=== PATIENT | female | born 1960 | race African-American/Black ===

== ENCOUNTER 2018-03-08 13:47 | Inpatient (IN) | payer OTHER ==
[~2018-03-08] VITALS: Ht 157.5 cm; Wt 66.2 kg
--- NOTE | ~2018-03-08 | EKG ---
[address] [address] ELECTROCARDIOGRAM REPORT Name: BELEM LEMUS Robert Room #: 201-P ADM IN M.R.#: [id number] Admission: 03/08/18 Attend Phys: Pato Millan MD Discharge: Date of : 56 Report #: [id number] THIS REPORT FOR: //name// [facility] ED Test Date: 2018-03-08 Test Time: 14:09:23 Pat Name: BELEM LEMUS Department: Room: [facility] Gender: F Pharmacy Resource Tech: TAMARA : 1960 Requested By: Alessio Sanchez Order Number: [id number] MD: Dameon Carlson Measurements Intervals [place] Rate: 204 P: 0 GA: 98 QRS: 48 QRSD: 83 T: 105 QT: 206 QTc: 380 Interpretive Statements Supraventricular tachycardia Repolarization abnormality, prob rate related Compared to ECG 01/26/2010 10:41:37 SVT is now present Electronically Signed On 03-09-2018 8:48:12 LAND COMMISSIONER by Dameon Carlson [email or web address] <ELECTRONICALLY SIGNED> By: Dameon Carlson MD, [facility] 03/09/18 0848 1409 140 Dameon Carlson MD, [facility] /EPI
--- NOTE | ~2018-03-08 | HC ---
[facility] [place] [address] CONSULTATION Name: BELEM LEMUS Room #: 201-P [facility] IN ..#: [id number] Admission: 03/08/18 Attend Phys: Pato Millan MD Discharge: Date of : 56 Report #: [id number] THIS REPORT FOR: //name// CC: FAM unknown Pato Millan REASON FOR CONSULTATION: Palpitations. HISTORY OF PRESENT ILLNESS: The patient is a 57-year-old woman with chronic pain syndrome and sympathetic dystrophy. Over the past 2 weeks, she has noticed a rapid and racing heartbeat. This has been off and on, almost continuously for the past 2 weeks. Today's episode was more prolonged and she presented to the Emergency Department, where she was found to be in a supraventricular short RP tachycardia. She was given Cardizem and converted to sinus tachycardia with atrial premature complexes. She has had brief runs of SVT on intravenous Cardizem, although feels significantly better. She denies chest pain, pressure or ischemic-type symptoms. She denies heart failure symptoms including orthopnea, paroxysmal nocturnal dyspnea or lower extremity edema. Occasional lightheaded spells, no syncope. MEDICATIONS: Include olmesartan 20 mg daily and alprazolam 0.5 mg as needed. ALLERGIES: SHE IS ALLERGIC TO IODINE AND SHELLFISH. PAST MEDICAL HISTORY: Her past history and medical records have been reviewed and include a history of chronic back pain, hypertension, anxiety disorder and deaf with cochlear implant. SOCIAL HISTORY: She is nonsmoker, nondrinker. She drinks 6-8 cans of caffeinated soda a day, 1-2 cups of coffee a day. FAMILY HISTORY: Notable for mother who had a bovine aortic valve replacement. REVIEW OF SYSTEMS: All systems negative, except as that noted above. PHYSICAL EXAMINATION: GENERAL: Exam reveals a pleasant woman, in no distress. VITAL SIGNS: Blood pressure is 126/71, heart rate of 90 and regular. She is afebrile. HEENT: There are neither xanthelasma, subcutaneous xanthomata, oral mucosal or digital cyanosis or kyphoscoliosis present. CHEST: Clear to auscultation and percussion. CARDIAC EXAMINATION: Regular rate and rhythm, with normal S1, S2. No murmurs, or rubs. ABDOMEN: Soft and nontender. EXTREMITIES: Without cyanosis, clubbing or edema. Radial pulses are 2+. NEUROLOGIC: She is alert, with a nonfocal exam. [facility] [address] [place] [address] CONSULTATION Name: BELEM LEMUS Room #: 201-P [facility] IN [facility]#: [id number] Admission: 03/08/18 Attend Phys: Pato Millan MD Discharge: Date of : 56 Report #: [id number] LABORATORY DATA: EKG from 01/2010 is normal. No pre-excitation. Followup EKG today at 14:33 is normal. Sodium 145, potassium 3.6 and creatinine 1.0. Troponin 0. White count 8.4, hemoglobin 14, hematocrit 42 and platelet count 192,000. TSH 1.25. Chest x-ray is normal. IMPRESSION: 1. 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 2. Hypertension. 3. Sympathetic dystrophy. 4. Chronic pain syndrome. 5. Deaf with cochlear implant. RECOMMENDATIONS: 1. Change from intravenous to oral Cardizem. Add a type 1C antiarrhythmic agent such as flecainide. 2. Echocardiogram with Doppler. 3. Moderation in caffeine intake strongly encouraged. 4. Consider outpatient evaluation for ablation. These issues were discussed with the patient and her family. Thank you for asking me to participate in her care. <ELECTRONICALLY SIGNED> By: Dameon Carlson MD, FACC 03/09/18 1239 1929 2339 Dameon Carlson MD, FACC /nt
--- NOTE | ~2018-03-08 | EKG ---
[address] [address] ELECTROCARDIOGRAM REPORT Name: BELEM LEMUS Room #: 201-P ADM IN M.R.#: [id number] Admission: 03/08/18 Attend Phys: Pato Millan MD Discharge: Date of : 56 Report #: [id number] THIS REPORT FOR: //name// [facility] ED Test Date: 2018-03-08 Test Time: 14:01:28 Pat Name: BELEM LEMUS Department: Room: [facility] Gender: F Swimming Coach Or Instructor: TAMARA : 1960 Requested By: Alessio Sanchez Order Number: [id number] MD: Dameon Carlson Measurements Intervals [place] Rate: 112 P: 65 VT: 138 QRS: 28 QRSD: 83 T: 40 QT: 315 QTc: 430 Interpretive Statements Sinus tachycardia Multiple premature complexes, supraven Nonspecific ST segment abnormality Compared to ECG 01/26/2010 10:41:37 Atrial premature complexes are now present Electronically Signed On 03-09-2018 8:47:57 GAS PUMP ATTENDANT by Dameon Carlson [email or web address] <ELECTRONICALLY SIGNED> By: Dameon Carlson MD, [facility] 03/09/18 0847 1401 1401 Dameon Carlson MD, [facility] /EPI
--- NOTE | ~2018-03-08 | EKG ---
[address] [address] ELECTROCARDIOGRAM REPORT Name: ALLANBELEM Robert Room #: 201- ADM IN M.R.#: [id number] Admission: 03/08/18 Attend Phys: Pato Millan MD Discharge: Date of : 56 Report #: [id number] THIS REPORT FOR: //name// [facility] Test Date: 2018-03-09 Test Time: 06:44:26 Pat Name: BELEM LEMUS Department: Room: 201 Gender: F Digester Cook: ALEXA : 1960 Requested By: Dameon Carlson Order Number: [id number] MD: Dameon Carlson Measurements Intervals [place] Rate: 64 P: 64 [place]: 178 QRS: 54 QRSD: 93 T: 59 QT: 431 QTc: 445 Interpretive Statements Sinus rhythm Normal tracing Compared to ECG 01/26/2010 10:41:37 No significant changes Electronically Signed On 03-09-2018 8:58:12 DIAMOND SORTER by Dameon Carlson [email or web address] <ELECTRONICALLY SIGNED> By: Dameon Carlson MD, [facility] 03/09/18 0858 0644 0644 Dameon Carlson MD, FACC /EPI
--- NOTE | ~2018-03-08 | EKG ---
[address] [address] ELECTROCARDIOGRAM REPORT Name: BELEM LEMUS Room #: 201-P ADM IN M.R.#: [id number] Admission: 03/08/18 Attend Phys: Pato Millan MD Discharge: Date of : 56 Report #: [id number] THIS REPORT FOR: //name// [facility] ED Test Date: 2018-03-08 Test Time: 14:33:29 Pat Name: BELEM LEMUS Department: Room: [facility] Gender: F Movie Stunt Performer: TAMARA : 1960 Requested By: Alessio Sanchez Order Number: [id number] MD: Dameon Carlson Measurements Intervals [place] Rate: 55 P: 66 SC: 145 QRS: 36 QRSD: 88 T: 51 QT: 406 QTc: 389 Interpretive Statements Sinus bradycardia Otherwise normal tracing Compared to ECG 01/26/2010 10:41:37 Sinus rhythm is replaced SVT Electronically Signed On 03-09-2018 8:48:48 SHIFT COMMANDER by Dameon Carlson [email or web address] <ELECTRONICALLY SIGNED> By: Dameon Carlson MD, [facility] 03/09/18 0848 1433 1433 Dameon Carlson MD, [facility] /EPI
--- NOTE | ~2018-03-08 | 2DMMODE ---
[facility] [address] [place] [address] 2 D/M-MODE ECHOCARDIOGRAM Name: BELEM LEMUS Room #: 201-P [facility]#: [id number] Admission: 03/08/18 Attend Phys: Pato Millan, Discharge: Date of : 56 Date of Service: 03/09/18 1014 Report #: [id number] THIS REPORT FOR: //name// APPROVED REPORT Study performed: 03/09/2018 09:31:05 EXAM: Comprehensive 2D, Doppler, and color-flow Echocardiogram Patient Location: Bedside Room #: 201 Status: routine BSA: 1.67 HR: 76 bpm BP: 108/54 mmHg Rhythm: NSR Other Information Study Quality: Adequate Indications Tachycardia Hypertension/HDD 2D Dimensions RVDd: 34.04 mm IVSd: 9.09 (7-11mm) LVOT Diam: 18.49 (18-24mm) LVDd: 37.31 mm PWd: 9.38 (7-11mm) Ascending Ao: 23.24 (22-36mm) LVDs: 24.63 (25-40mm) Aortic Root: 24.99 mm IVC: 10.00 mm Volumes Left Atrial Volume (Systole) Single Plane 4CH: 29.10 mL Single Plane 2CH: 46.84 mL LA ESV Index: 25.00 mL/m2 Aortic Valve AoV Peak Faheem.: 1.59 m/s AO Peak Gr.: 10.14 mmHg LVOT Max P.09 mmHg LVOT Max V: 1.33 m/s MONCHO Vmax: 2.24 cm2 Mitral Valve E/A Ratio: 1.1 MV Decel. Time: 211.09 ms [facility] [place] [address] 2 D/M-MODE ECHOCARDIOGRAM Name: ALLANBELEM Robert Room #: 201-P [facility] IN ..#: [id number] Admission: 03/08/18 Attend Phys: Pato Millan, Discharge: Date of : 56 Date of Service: 03/09/18 1014 Report #: [id number] MV E Max Faheem.: 0.81 m/s MV A Faheem.: 0.76 m/s MV PHT: 61.22 ms IVRT: 64.59 ms Pulmonary Valve PV Peak Faheem.: 0.98 m/s PV Peak Gr.: 3.86 mmHg Pulmonary Vein P Vein S: 0.76 m/s P Vein A: 0.26 m/s P Vein D: 0.37 m/s P Vein A Dur.: 96.9 msec P Vein S/D Ratio: 2.05 Tricuspid Valve TR Peak Faheem.: 2.23 m/s TR Peak Gr.: 19.97 mmHg PA Pressure: 25.00 mmHg Left Ventricle The left ventricle is normal size. There is normal LV segmental wall motion. There is normal left ventricular wall thickness. Left ventricular systolic function is normal. The left ventricular ejection fraction is within the normal range. LVEF is 55-60%. The left ventricular diastolic function is normal. Right Ventricle The right ventricle is normal size. The right ventricular systolic function is normal. Atria The left atrium size is normal. The right atrium size is normal. Aortic Valve The aortic valve is mildly sclerotic No aortic regurgitation is present. There is no aortic valvular stenosis. Mitral Valve The mitral valve is normal in structure. There is no mitral valve regurgitation noted. No evidence of mitral valve stenosis. Tricuspid Valve The tricuspid valve is normal in structure. There is trace tricuspid regurgitation. Estimated PAP 25 mmHg. There is no pulmonary hypertension. [address] [address] 2 D/M-MODE ECHOCARDIOGRAM Name: BELEM LEMUS Robert Room #: 201-P [facility]#: [id number] Admission: 03/08/18 Attend Phys: Pato Millan, Discharge: Date of : 56 Date of Service: 03/09/18 1014 Report #: [id number] Pulmonic Valve The pulmonary valve is normal in structure. There is no pulmonic valvular regurgitation. Great Vessels The aortic root is normal in size. IVC is normal in size and collapses >50% with inspiration. Pericardium There is no pericardial effusion. <Conclusion> Left ventricular systolic function is normal. There is normal LV segmental wall motion. LVEF is 55-60%. Normal diastolic function The aortic valve is mildly sclerotic. No aortic regurgitation or stenosis. The mitral valve is normal in structure. No mitral valve regurgitation. There is trace tricuspid regurgitation. Estimated pulmonary artery pressure of 25 mmHg. There is no pericardial effusion. <ELECTRONICALLY SIGNED> By: Dameon Carlson MD, FACC 03/09/18 1014 1014 1014 Dameon Carlson MD, FACC /INF
[~2018-03-08 13:47] MED LIST: CARISOPRODOL 3350 MG; CATAPRES-TTS 10.1 M1; EXFORGE; NEURONTIN 300M300 M2; OXYCODONE-APAP1 EAC5; TRAMADOL 50 MG50 MG; XANAX 0.25 MG0.25 MG
[2018-03-08 13:48] VITALS: BP 109/47
[2018-03-08 15:03] LABS: ABSOLUTE NEUTROPHILS 5.7 thou/uL (1.4-8.2); BASOPHILS 0.4 % (0.0-2.0); EOSINOPHILS 0.4 % (0.0-3.0); HEMATOCRIT 42.9 % (37.0-47.0); HEMOGLOBIN 14.5 gm/dL (12.0-15.0); MCH 31.6 pg (26.0-34.0); MCHC 33.7 g/dL (28.0-37.0); MCV 93.8 fL (80.0-100.0); MONOCYTES 7.1 % (1.0-8.0); PLATELET COUNT 192 thou/uL (150-400); POLYS 68.1 % (36.0-66.0); RBC 4.58 mil/uL (4.20-5.00); RDW 13.7 % (10.5-14.5); WBC 8.4 thou/uL (4.0-11.0)
[2018-03-08] MEDS ORDERED: BENICAR20 MG PO (15:04)
[2018-03-08] MEDS ORDERED: XANAX 0.5 MG0.5 MG PO (15:05)
[2018-03-08 15:08] LABS: ANION GAP 12 mmol/L (7-16); BUN 18 mg/dL (7-18); CALCIUM 9.5 mg/dL (8.5-10.1); CHLORIDE 107 mmol/L (98-107); CO2 26 mmol/L (21-32); GLUCOSE 109 mg/dL (74-106); POTASSIUM 3.8 mmol/L (3.5-5.1); SODIUM 145 mmol/L (136-145)
[2018-03-08 15:16] LABS: TROPONIN-I <0.06 ng/mL (<0.06)
[2018-03-08 17:00] VITALS: BP 136/86
[2018-03-08 17:29] LABS: TOTAL PROTEIN 7.9 g/dL (6.4-8.2)
[2018-03-08 17:54] LABS: TSH 1.259 uIU/mL (0.358-3.740)
[2018-03-08 18:07] VITALS: BP 126/71
[2018-03-09] VITALS (8 sets, daily range): BP systolic 94–130; BP diastolic 48–63
[2018-03-09 03:51] LABS: CALCIUM 8.8 mg/dL (8.5-10.1); CREATININE 0.8 mg/dL (0.6-1.0); POTASSIUM 3.9 mmol/L (3.5-5.1)
[2018-03-09 04:46] LABS: HEMATOCRIT 41.1 % (37.0-47.0); HEMOGLOBIN 13.7 gm/dL (12.0-15.0); MCH 31.6 pg (26.0-34.0); MCHC 33.3 g/dL (28.0-37.0); MCV 94.9 fL (80.0-100.0); RBC 4.33 mil/uL (4.20-5.00); RDW 13.8 % (10.5-14.5); WBC 7.5 thou/uL (4.0-11.0)
[2018-03-09] MEDS ORDERED: FLECAINIDE ACET50 M1 PO (09:49)
[2018-03-09] MEDS ORDERED: CARDIZEM CD240 MG PO (09:49)
== END 2018-03-09 18:57 | disposition home or self-care (01) | DRG 309 ==
LOC: ER 13:47 → 2N 16:31 → EROBS 16:31 → 2N 18:24
PROVIDERS: Emergency Medicine; Internal Medicine
DX: I47.1 Supraventricular tachycardia (principal); L10.4 Pemphigus erythematosus; G90.50 Complex regional pain syndrome I, unspecified; H91.90 Unspecified hearing loss, unspecified ear; I48.92 Unspecified atrial flutter; I10 Essential (primary) hypertension; G89.4 Chronic pain syndrome; F41.1 Generalized anxiety disorder; Z79.899 Other long term (current) drug therapy; Z91.041 Radiographic dye allergy status; Z91.013 Allergy to seafood; Z82.49 Family history of ischemic heart disease and other diseases of the circulatory system
CPT/HCPCS: 10081

== ENCOUNTER 2018-03-12 18:06 | Inpatient (IN) | payer OTHER ==
[~2018-03-12] VITALS: Ht 160 cm; Wt 59.4 kg
--- NOTE | ~2018-03-12 | HC ---
[facility] [place] [address] CONSULTATION Name: BELEM LEMUS Room #: 215-P [facility] IN ..#: [id number] Admission: 03/12/18 Attend Phys: Braxton Tubbs MD Discharge: Date of : 56 Report #: [id number] THIS REPORT FOR: //name// CC: Braxton Morales REASON FOR CONSULTATION: Palpitations. HISTORY OF PRESENT ILLNESS: The patient is a 57-year-old woman who was recently admitted on 03/08 with paroxysmal supraventricular tachycardia. This was responsive to diltiazem and flecainide. She was discharged to home, although re-presented to the Emergency Department with the same tachycardia. This was at a rate of 165 beats per minute. 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 She had not taken her evening flecainide dose as she was at a [employer] [place] republican. She denies chest pain, pressure or ischemic type symptoms. She has occasional lightheadedness, no syncope, no heart failure symptoms including orthopnea, paroxysmal nocturnal dyspnea or lower extremity edema. ALLERGIES: SHE IS ALLERGIC TO IODINE AND SHELLFISH. MEDICATIONS: Include flecainide 50 mg twice daily, diltiazem CD 240 mg daily. PAST MEDICAL HISTORY: Medical records have been reviewed and include a history of chronic complex regional pain syndrome, deafness with cochlear implant, PSVT, anxiety disorder, hypertension. SOCIAL HISTORY: She is nonsmoker, nondrinker. She had been a heavy caffeine drinker up until recently. FAMILY HISTORY: Notable for mother who had a bovine aortic valve replacement. REVIEW OF SYSTEMS: All systems negative except as that noted above. PHYSICAL EXAMINATION: GENERAL: Reveals a pleasant woman in no distress. VITAL SIGNS: Blood pressure is 108/68, heart rate of 65 and regular. She is afebrile. HEENT: There are neither xanthelasma, subcutaneous xanthomata, oral mucosal or digital cyanosis or kyphoscoliosis present. CHEST: Clear to auscultation and percussion. CARDIOVASCULAR: Regular rate and rhythm with normal S1, S2. No murmurs or rubs. ABDOMEN: Soft and nontender. EXTREMITIES: Without cyanosis, clubbing or edema. Radial pulses are 2+. NEUROLOGIC: She is alert with a nonfocal exam. [facility] [address] [place] [address] CONSULTATION Name: BELEM LEMUS [facility] ..#: [id number] Admission: 03/12/18 Attend Phys: Braxton Tubbs MD Discharge: Date of : 56 Report #: [id number] Recent echocardiogram was normal. EKG, supraventricular tachycardia with short RP tachycardia with nonspecific ST segment abnormality. Resting EKG in the absence of this tachycardia is normal. LABORATORY DATA: Sodium 144, potassium 3.8, creatinine 0.9. Troponin 0. White count 11.1, hemoglobin 15, hematocrit 45, platelet count 211. IMPRESSION: 1. Paroxysmal supraventricular tachycardia. 2. Hypertension. 3. Chronic regional pain syndrome. 4. Deaf with cochlear implant. RECOMMENDATIONS: 1. Continue Cardizem and flecainide. 2. Formal electrophysiologic consultation. <ELECTRONICALLY SIGNED> By: Dameon Carlson MD, FACC 03/13/18 0834 0730 0747 Dameon Carlson MD, FAC /nt
--- NOTE | ~2018-03-12 | EKG ---
[address] [place] [address] ELECTROCARDIOGRAM REPORT Name: BELEM LEMUS Room #: 215-P ADM IN M.R.#: [id number] Admission: 03/12/18 Attend Phys: Braxton Tubbs MD Discharge: Date of : 56 Report #: [id number] THIS REPORT FOR: //name// [facility] ED Test Date: 2018-03-12 Test Time: 18:09:39 Pat Name: BELEM LEMUS Department: Room: [facility] Gender: F Wiring Mechanic: DOMO : 1960 Requested By: Elise Jaramillo Order Number: [id number] MD: Dameon Carlson Measurements Intervals [place] Rate: 165 P: 0 [place]: QRS: 34 QRSD: 91 T: 185 QT: 277 QTc: 459 Interpretive Statements Supraventricular tachycardia Repolarization abnormality, prob rate related Compared to ECG 03/09/2018 06:44:26 SVT is now present Electronically Signed On 03-13-2018 8:41:44 VASCULAR TECHNICIAN by Dameon Carlson [email or web address] <ELECTRONICALLY SIGNED> By: Dameon Carlson MD, [facility] 03/13/18 0841 08 08 Dameon Carlson MD, [facility] /EPI
[2018-03-12 11:30] VITALS: BP 104/46
[~2018-03-12 18:06] MED LIST changes: +BENICAR20 MG PO; +CARDIZEM CD240 MG PO; +FLECAINIDE ACET50 M1 PO; +XANAX 0.5 MG0.5 MG PO
[2018-03-12 18:10] VITALS: BP 102/96
[2018-03-12 18:22] LABS: ABSOLUTE NEUTROPHILS 6.7 thou/uL (1.4-8.2); BASOPHILS 0.3 % (0.0-2.0); EOSINOPHILS 0.6 % (0.0-3.0); HEMATOCRIT 45.1 % (37.0-47.0); HEMOGLOBIN 15.1 gm/dL (12.0-15.0); LYMPHOCYTES 31.6 % (24.0-44.0); MCH 31.5 pg (26.0-34.0); MCHC 33.4 g/dL (28.0-37.0); MCV 94.2 fL (80.0-100.0); MONOCYTES 6.5 % (1.0-8.0); PLATELET COUNT 211 thou/uL (150-400); RBC 4.78 mil/uL (4.20-5.00); RDW 13.6 % (10.5-14.5)
[2018-03-12 18:27] LABS: ANION GAP 14 mmol/L (7-16); BUN 23 mg/dL (7-18); CALCIUM 10.1 mg/dL (8.5-10.1); CHLORIDE 103 mmol/L (98-107); CO2 26 mmol/L (21-32); GLUCOSE 112 mg/dL (74-106); POTASSIUM 3.7 mmol/L (3.5-5.1); SODIUM 143 mmol/L (136-145)
[2018-03-12 18:36] LABS: MAGNESIUM 2.3 mg/dL (1.8-2.4); TROPONIN-I <0.06 ng/mL (<0.06)
[2018-03-12 20:01] VITALS: BP 130/61
[2018-03-12 20:32] VITALS: BP 161/67
[2018-03-12] MEDS ORDERED: BENICAR20 MG PO (21:08)
[2018-03-13] VITALS (7 sets, daily range): BP systolic 94–140; BP diastolic 42–72
[2018-03-13 04:43] LABS: CREATININE 0.9 mg/dL (0.6-1.0); POTASSIUM 3.8 mmol/L (3.5-5.1)
[2018-03-13] MEDS ORDERED: TAMBOCOR 100 M100 M1 PO (09:51)
[2018-03-14 04:00] VITALS: BP 102/55
[2018-03-14] MEDS ORDERED: CARDIZEM CD120 MG PO (11:37)
[2018-03-14] MEDS ORDERED: TRIMETHOPRIM /P10 M1 OPHTHALMIC (13:02)
[2018-03-14 13:19] VITALS: BP 102/55
[2018-03-14 14:21] VITALS: BP 102/55
== END 2018-03-14 14:25 | disposition home or self-care (01) | DRG 309 ==
LOC: ER 18:06 → 2N 18:57 → EROBS 18:57 → 2N 20:04
PROVIDERS: Emergency Medicine; Nurse Practitioner Family
DX: I47.1 Supraventricular tachycardia (principal); G90.50 Complex regional pain syndrome I, unspecified; I10 Essential (primary) hypertension; M54.9 Dorsalgia, unspecified; Z96.21 Cochlear implant status; G89.4 Chronic pain syndrome; F41.1 Generalized anxiety disorder; Z60.2 Problems related to living alone; Z91.041 Radiographic dye allergy status; Z91.013 Allergy to seafood; Z82.49 Family history of ischemic heart disease and other diseases of the circulatory system; Z79.899 Other long term (current) drug therapy
CPT/HCPCS: 10081

== ENCOUNTER → 2018-03-25 | Outpatient (CLI) | payer OTHER ==
[~2018-03-25] VITALS: Ht 160 cm; Wt 54.4 kg
[~2018-03-25] MED LIST changes: +CARDIZEM CD120 MG PO; +TAMBOCOR 100 M100 M1 PO; +TRIMETHOPRIM /P10 M1 OPHTHALMIC
[2018-03-25 07:19] VITALS: BP 156/67
[2018-03-25 07:24] LABS: ABSOLUTE NEUTROPHILS 5.1 thou/uL (1.4-8.2); BASOPHILS 0.5 % (0.0-2.0); EOSINOPHILS 0.8 % (0.0-3.0); HEMATOCRIT 43.6 % (37.0-47.0); HEMOGLOBIN 14.4 gm/dL (12.0-15.0); LYMPHOCYTES 24.5 % (24.0-44.0); MCH 31.1 pg (26.0-34.0); MCHC 32.9 g/dL (28.0-37.0); MCV 94.4 fL (80.0-100.0); MONOCYTES 6.9 % (1.0-8.0); PLATELET COUNT 239 thou/uL (150-400); POLYS 67.3 % (36.0-66.0); RBC 4.62 mil/uL (4.20-5.00); WBC 7.5 thou/uL (4.0-11.0)
[2018-03-25 07:29] LABS: CALCIUM 9.8 mg/dL (8.5-10.1); CREATININE 0.9 mg/dL (0.6-1.0); POTASSIUM 4.1 mmol/L (3.5-5.1)
[2018-03-25 07:34] LABS: ALBUMIN 4.1 g/dL (3.4-5.0); TOTAL BILIRUBIN 0.2 mg/dL (<0.1-1.0); TOTAL PROTEIN 8.5 g/dL (6.4-8.2)
[2018-03-25 07:38] LABS: APTT 26.3 Seconds (24.5-32.8); PROTIME 9.4 Seconds (9.3-11.4)
== END | disposition home or self-care (01) ==
LOC: CATH 06:40
PROVIDERS: Internal Medicine Cardiovascular Disease
DX: I47.1 Supraventricular tachycardia (principal); I48.91 Unspecified atrial fibrillation; I48.92 Unspecified atrial flutter; I49.9 Cardiac arrhythmia, unspecified; I10 Essential (primary) hypertension; F41.9 Anxiety disorder, unspecified; M54.5 Low back pain; G89.29 Other chronic pain; Z79.01 Long term (current) use of anticoagulants; Z98.890 Other specified postprocedural states; Z91.041 Radiographic dye allergy status; Z79.891 Long term (current) use of opiate analgesic; Z79.899 Other long term (current) drug therapy
CPT/HCPCS: 62110; 62900; 70005

== ENCOUNTER 2018-03-26 03:02 | Emergency (ER) | payer OTHER ==
[~2018-03-26] VITALS: Ht 160 cm; Wt 54.4 kg
[2018-03-26 05:06] LABS: ABSOLUTE NEUTROPHILS 8.3 thou/uL (1.4-8.2); BASOPHILS 0.3 % (0.0-2.0); EOSINOPHILS 0.2 % (0.0-3.0); HEMATOCRIT 40.3 % (37.0-47.0); HEMOGLOBIN 13.2 gm/dL (12.0-15.0); LYMPHOCYTES 11.8 % (24.0-44.0); MCH 30.6 pg (26.0-34.0); MCHC 32.8 g/dL (28.0-37.0); MCV 93.4 fL (80.0-100.0); MONOCYTES 4.2 % (1.0-8.0); PLATELET COUNT 216 thou/uL (150-400); POLYS 83.5 % (36.0-66.0); RBC 4.32 mil/uL (4.20-5.00); RDW 13.8 % (10.5-14.5); WBC 9.9 thou/uL (4.0-11.0)
[2018-03-26 05:14] LABS: CALCIUM 9.7 mg/dL (8.5-10.1); CREATININE 0.8 mg/dL (0.6-1.0); POTASSIUM 4.1 mmol/L (3.5-5.1)
[2018-03-26 07:02] VITALS: BP 145/62
== END 2018-03-26 07:41 | disposition home or self-care (01) ==
LOC: ER 03:02
PROVIDERS: Student in an Organized Health Care Education/Training Program
DX: J02.9 Acute pharyngitis, unspecified (principal); F41.9 Anxiety disorder, unspecified; I10 Essential (primary) hypertension; Z91.041 Radiographic dye allergy status; Z91.013 Allergy to seafood

== ENCOUNTER → 2018-06-02 | Outpatient (CLI) | payer OTHER | LOC: NUC 11:09 | DX: R07.89 Other chest pain (principal); I10 Essential (primary) hypertension; F41.9 Anxiety disorder, unspecified; Z91.041 Radiographic dye allergy status; Z91.013 Allergy to seafood ==

== ENCOUNTER → 2019-09-17 | Outpatient (CLI) | payer OTHER ==
[~2019-09-17] VITALS: Ht 157.5 cm; Wt 51.7 kg
[~2019-09-17] MED LIST changes: +DILTIAZEM ER120 M2 PO; +MICARDIS 20MG T20 M1 PO; +TOPROL XL25 MG PO; +VITAMIN B-125000 MCG SUBLING
--- NOTE | 2019-09-22 08:17 | P ---
[facility] [address] PROCEDURE REPORT Name: BELEM LEMUS Room #: [facility].#: [id number] Admission: 09/17/19 Attend Phys: Lopez Sidhu Discharge: Date of : 56 Report #: [id number] THIS REPORT FOR: cc: Camila Morales MD,Lopez Dent MD, MD ~ CC: Lopez Morales MD DATE OF SERVICE: 09/17/2019 PROCEDURE PERFORMED: Colonoscopy. HISTORY OF PRESENT ILLNESS: The patient is a 58-year-old female with a history of tubular adenomatous polyps removed in 2013. She is here for a routine followup. She denies any symptoms. No family history of colon cancer. DESCRIPTION OF PROCEDURE: The risks and benefits of the procedure were explained to the patient, those risks including but not limited to bleeding, perforation and the risk of sedation. She understood these risks and gave informed consent. Sedation was given using propofol per anesthesia. Next, a digital rectal exam was initially performed, which was normal. Next, using a standard Olympus colonoscope, the scope was placed in the patient's anus and advanced under direct vision to the cecum. The overall prep was good. The cecum and ileocecal valve were normal in appearance. The ascending, transverse, descending and sigmoid colon were all normal. The rectal mucosa was normal. On retroflexion, no abnormalities were noted. The scope was then withdrawn and the procedure terminated. The patient tolerated the procedure well. IMPRESSION: Normal colonoscopy. RECOMMENDATIONS: Repeat colonoscopy in 10 years. Thank you for allowing me to participate in her care. <ELECTRONICALLY SIGNED> By: Lopez Vidales MD 09/22/19 0817 0844 1344 Lopez Vidales MD /nt
== END | disposition home or self-care (01) ==
LOC: GI 04-23 11:44
PROVIDERS: ATTEND Specialist
DX: Z12.11 Encounter for screening for malignant neoplasm of colon (principal); Z86.010 Personal history of colon polyps; I10 Essential (primary) hypertension; F41.9 Anxiety disorder, unspecified; M54.9 Dorsalgia, unspecified; G89.29 Other chronic pain; Z98.890 Other specified postprocedural states; Z79.899 Other long term (current) drug therapy; Z91.041 Radiographic dye allergy status; Z88.8 Allergy status to other drugs, medicaments and biological substances; Z11.59 Encounter for screening for other viral diseases
CPT/HCPCS: 62110; 62900

== ENCOUNTER → 2019-11-11 | Outpatient (CLI) | payer OTHER ==
[~2019-11-11] VITALS: Ht 160 cm; Wt 54.4 kg
[~2019-11-11] MED LIST changes: +CYMBALTA20 MG PO; +VITAMIN D PO
--- NOTE | ~2019-11-11 | HPC ---
[facility] [address] [place] [address] PAIN MANAGEMENT CONSULTATION Name: BELEM LEMUS Room #: REG DIANA Alexander.#: [id number] Admission: 11/11/19 Attend Phys: Alberto Fox MD Discharge: Date of : 56 Report #: [id number] THIS REPORT FOR: cc: Camila Morales MD, Stephanie M. MD Morgan, Richard L. MD ~ CC: Alberto Morales MD DATE OF SERVICE: 11/11/2019 CHIEF COMPLAINT: Chronic bilateral leg pain. Longstanding diagnosis of complex regional pain syndrome. I am meeting the patient for the first time at the request of Dr. Morales. She is a seasoned pain patient with chronic pain complaints that date back over a decade. 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 An injury to her left knee developed into a more complex problem, eventually diagnosed as reflex sympathetic dystrophy or complex regional pain syndrome. She was not familiar with the second terminology and referred to her condition by the old term RSD. She describes continuous, steady, constant pain, burning, aching, cramping, shooting and pulling. Her average daily pain is a 9. She describes it like being outside in the cold with a bitter sensation of stinging on her legs. It interferes with all activities including sleep. Given her longstanding pain problem, she has been associated with numerous pain clinics over the years. Dr. Chavez Viramontes has provided her she says with dozens of epidurals. Dr. Martin implanted a spinal cord stimulator, which never worked and was explanted. Dr. Doyle Ontiveros provided her with multiple medications, but once she was ____, she stopped all of her medicines cold turkey and has not resumed regular opioids. When she took medicines, she said they only took the edge off. She did not complain much of side effects. She has also seen Dr. Liss Acevedo and other physicians at the [facility] and received injections and medications. Currently, she scores her daily pain is a 9. She is in a wheelchair. She can do transfers, occasionally walk with quad canes, but is for the most part an invalid. MEDICATIONS: Metoprolol, vitamin D, alprazolam 0.5 mg t.i.d., telmisartan 20 mg daily. ALLERGIES: IODINE and SHELLFISH. PAST MEDICAL HISTORY: Knee surgery first in 1974 and then the injury came in [facility] [address] [place] [address] PAIN MANAGEMENT CONSULTATION Name: BELEM LEMUS Room #: REG [facility]#: [id number] Admission: 11/11/19 Attend Phys: Alberto Fox MD Discharge: Date of : 56 Report #: [id number] 2003 and she was operated on in 2004. I am not sure of the exact surgery. She has a fairly large medial scar. She had lumbar surgery in 2010; a spinal cord stimulator placement, which was later removed. She had a cochlear implant in her right ear in 2011. Coronary artery disease prompted cardiac surgery in 2019. The patient has a history of hypertension, but denies other medical conditions. SOCIAL HISTORY: She lives with a roommate in [facility] independently. 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 She denies use of tobacco, drinks an occasional alcoholic drink, but this is rare. She denies use of marijuana or any other toxicating substances. I did ask her some very specific questions about activities of daily living. Given the fact that she cannot get out of her wheelchair much, I asked her if she could provide for herself with cooking, cleaning, shopping. She says that she is able to do many of the activities around her house. She does not drive. Impact of pain score is 48 out of possible 70 suggesting significant impacts in all of her day-to-day activities, mood and sleep related to her pain. REVIEW OF SYSTEMS: She has fatigue, weakness and hearing loss. She has a cochlear implant. She has frequent palpitations. She complains of numbness and tingling sensations in her legs and a history of depression. PHYSICAL EXAMINATION: GENERAL: She is a well-groomed, pleasant, hard of hearing, 59-year-old. She is 5 feet 3 inches, 120 pounds. BMI is 21.3. VITAL SIGNS: Blood pressure 151/84, heart rate 70, respirations 14, O2 sat 100. HEENT: Reveals pupils to be equal, round, reactive to light. EOMs are intact. NECK: Supple. CHEST: Clear. CARDIAC: Rhythm was regular. I could not hear a murmur. MUSCULOSKELETAL: Examination of her spine reveals normal range of motion in the seated position. She has some mild tenderness over the lumbosacral segment. Examination of the legs reveals normal sensation to light touch. Straight leg raising is negative. Deep tendon reflexes are 2+ at the knees and 1+ at the ankles with slow response bilaterally at the ankles. Strength overall in lower extremities is weak in hip flexion, leg extension, plantar and dorsiflexion of the feet in a generalized manner. X-RAYS: None. IMPRESSION: Chronic intractable leg pain. This has been diagnosed and called reflex sympathetic dystrophy by others. It is unusual to have bilateral symptoms in RSD. At this stage, the diagnosis does not direct therapy. She has [facility] [address] [place] [address] PAIN MANAGEMENT CONSULTATION Name: BELEM LEMUS Room #: REG FABBYTashi Riley#: [id number] Admission: 11/11/19 Attend Phys: Alberto Fox MD Discharge: Date of : 56 Report #: [id number] already had a spinal cord stimulator, which is for most the final step in advanced neuromodulation. She has been on all classes of medicines over the last 15 years including nonsteroidal anti-inflammatory drugs, antidepressants, antiseizure drugs and opioids. She is not currently taking an antidepressant for pain. We discussed the fact that this might provide some symptomatic relief. We are cautious about resuming opioids given her concern about being on them while under the care of Dr. Doyle Ontiveros. Intrathecal therapies are sometimes used for this, but I am no longer placing those pumps. She would have to find a clinic that is willing to undertake this complicated and complex therapy that will require checking in with a pain clinic every 2-3 months for the rest of her life with refills. Few pain clinics now are willing to take on the responsibility of this therapy given its poor reimbursement quite frankly. There are substantial risks associated with the therapy and the clinicians involved in ordering medications and performing refills place themselves at a high degree of exposure to liability should something go wrong. At 63, I am no longer placing these devices, but might provide some hope for her if she can find someone willing to do it in the community. Physical therapy was helpful for her in the past. She was able to gain improvement in mobility using her quad canes and asked if she could go to therapy again. I agree wholeheartedly. Improving her mobility would be critical to improving her pain as well as esteem. A prescription was written for therapy to improve strength and mobility. I started her on a low dose of Cymbalta for symptom management, 20 mg. If she does well with this, I see no reason why she cannot continue that with Dr. Morales, her primary care physician. There should be no resistance to adding that to the medications that she is already prescribing since it is a nonopioid and controlled substance. Thank very much for the opportunity to see this nice lady in consultation. By: [id number] Alberto Fox MD /nt
[2019-11-11 13:39] VITALS: BP 151/84
--- NOTE | 2019-11-11 14:00 | NUR ---
Pain Clinic Assessment: 1. History of Osteoarthritis: Not Applicable Not Applicable History of Rheumatoid Arthritis: N 2. Height: 5 ft. 3 in. 160.0 cm. Weight: 120.0 lb. oz. 54.432 kg. Patient's BMI: 21.3 3. Vital Signs: BP: 151/84 Pulse: 70 Resp: 14 Temp: 02 Sat: 100 ECG Mon: 4. Pain Intensity: 9 5. Fall Risk: Dizziness: N Needs help standing or walking: Y Fallen in the last 3 months: Y Fall risk comments: 6. Patient on Blood Thinner: None 7. History of Hypertension: Y 8. Opioid Therapy greater than 6 weeks: N Opiate Contract Signed: 9. Risk Assessment Tool Provided: LOW RISK 03/26 10. Functional Assessment Tool: 11. Recreational Drug Use: Never Drug Type: Tobacco Use: Never Smoker Tobacco Type: Amount or Packs/day: How Many Years: Alcohol Use: Yes Frequency: Special Occasions Quant:
== END ==
LOC: PAIN 10-18 06:49
PROVIDERS: ATTEND Anesthesiology Pain Medicine
DX: M79.604 Pain in right leg (principal); M79.605 Pain in left leg; G89.4 Chronic pain syndrome; Z88.8 Allergy status to other drugs, medicaments and biological substances; Z79.899 Other long term (current) drug therapy

== ENCOUNTER → 2019-12-28 | Outpatient (CLI) | payer OTHER | LOC: SJCVC 12:01 | PROVIDERS: ATTEND Internal Medicine Cardiovascular Disease | DX: R94.31 Abnormal electrocardiogram [ECG] [EKG] (principal); I47.1 Supraventricular tachycardia; I10 Essential (primary) hypertension; Z79.899 Other long term (current) drug therapy ==

== ENCOUNTER → 2020-12-26 | Outpatient (CLI) | payer OTHER | LOC: SJCVC 11:04 | PROVIDERS: ATTEND Internal Medicine Cardiovascular Disease | DX: R94.31 Abnormal electrocardiogram [ECG] [EKG] (principal); I47.1 Supraventricular tachycardia; I10 Essential (primary) hypertension; Z79.899 Other long term (current) drug therapy; Z72.89 Other problems related to lifestyle ==